=== PATIENT | male | born 1930 | race Caucasian/White ===

== ENCOUNTER 2016-07-18 14:43 | Inpatient (IN) | payer MEDICARE ==
--- NOTE | 2016-07-18 16:33 | ED.PDOC ---
History of Present Illness - General Chief Complaint: Skin/Abrasion/Tear Stated Complaint: swollen right big toe Time Seen by Provider: 07/18/16 16:31 Source: patient, RN notes reviewed, Vital Signs reviewed, family - Exam Limitations: no limitations Additional Information: Stated had 3rd toe amputation of right foot 4 weeks ago then stub rigght big toe one week ago and was noted that it had been getting red and more swelled up and tip of toe getting black - History of Present Illness Timing/Duration: other - one week Severity: moderate Improving Factors: nothing Worsening Factors: nothing Associated Symptoms: other - none Allergies/Adverse Reactions: Allergies Sulfa Antibiotics Allergy (Unknown, Verified 05/05/16 12:18) Codeine Allergy (Verified 05/05/16 12:18) Penicillin G Procaine Allergy (Verified 05/05/16 12:18) Home Medications: Ambulatory Orders Aspirin [Baby Aspirin] 81 mg PO QD 01/05/14 Carvedilol [Coreg] 3.125 mg PO BID 01/05/14 Digoxin 0.125 mg PO DAILY 01/05/14 Furosemide [Lasix] 40 mg PO DAILY 01/05/14 Glipizide [Glucotrol Xl] 2.5 mg PO DAILY 08/31/15 Esomeprazole Magnesium [Nexium] 40 mg PO BEDTIME 09/05/15 Simvastatin [Zocor] 20 mg PO BEDTIME 09/05/15 Insulin Glargine [Toujeo Solostar] 30 unit SC DAILY 05/05/16 Escitalopram [Lexapro] 10 mg PO DAILY 05/07/16 Polyethylene Glycol 3350 [Miralax] 17 gm PO DAILY PRN 05/07/16 Bifidobacterium Infantis [Align] 4 mg PO BID #30 cap 05/14/16 Chlorhexidine Gluc 4% 15Ml [Hibiclens 15ml Unit Dose] 60 ml TOP DAILY #3 ud Sulfa/Trimeth 800/160 (Ds) Tab [Bactrim DS] 1 ea PO BID #20 tab 05/14/16 traMADol 37.5MG/APAP 325MG [Ultracet] 1 ea PO .Q4H PRN #30 tab 05/14/16 Review of Systems - Review of Systems Constitutional: States: no symptoms reported EENTM: States: no symptoms reported Respiratory: States: no symptoms reported Cardiology: States: no symptoms reported Gastrointestinal/Abdominal: States: no symptoms reported Genitourinary: States: no symptoms reported Musculoskeletal: States: see HPI Skin: States: see HPI Endocrine: States: no symptoms reported Hematologic/Lymphatic: States: no symptoms reported Past Medical History (General) - Patient Medical History Hx Seizures: No 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 Hx Dementia: Yes Hx Asthma: No Hx of COPD: Yes Hx Cardiac Disorders: Yes - CHF Hx Congestive Heart Failure: Yes Hx Pacemaker: Yes - defibrillator Hx Hypertension: Yes Hx Thyroid Disease: No Hx Diabetes: Yes Hx Gastroesophageal Reflux: No Hx Renal Disease: No Hx Cancer: Yes - colon Hx of HIV: No Hx Hepatitis C: No Hx MRSA: No Surgical History: coronary bypass surgery, pacemaker, other - colon resection - Vaccination History Hx Tetanus, Diphtheria Vaccination: No Hx Influenza Vaccination: No Hx Pneumococcal Vaccination: No Immunizations Up to Date: No - Social History Hx Tobacco Use: No Hx Chewing Tobacco Use: Yes Hx Alcohol Use: No Hx Substance Use: No Hx Substance Use Treatment: No Hx Depression: No Hx Physical Abuse: No Hx Emotional Abuse: No Hx Suspected Abuse: No - Female History Patient : No Family Medical History - Family History Father Family History: Unknown Living Status: Unknown Hx Family Asthma: No Progress - Progress Progress: 07/18/16 17:41 07/18/16 16:56 Foot,Right 2 Views [RAD] Stat Toes,Right [RAD] Stat 07/18/16 17:02 Foot,Right 3 Views [RAD] Stat 07/18/16 17:12 COMPLETE METABOLIC PROFILE Stat LACTIC ACID Stat BLOOD CULTURE Stat Laboratory Results WBC 7.5 K/mm3 (4.8-10.8) 07/18/16 17:12 RBC 5.08 M/mm3 (4.70-6.10) 07/18/16 17:12 Hgb 15.4 gm/dL (14.0-18.0) 07/18/16 17:12 Hct 47.0 % (42.0-52.0) 07/18/16 17:12 MCV 92.5 fl (80.0-94.0) 07/18/16 17:12 MCH 30.3 pg (27.0-31.0) 07/18/16 17:12 MCHC 32.8 g/dL (33.0-37.0) L 07/18/16 17:12 RDW 15.6 % (11.5-14.5) H 07/18/16 17:12 Plt Count 167 K/mm3 (130-400) 07/18/16 17:12 MPV 9.9 fl (7.40-10.4) 07/18/16 17:12 Absolute Neuts (auto) 5.70 K/uL (1.8-6.8) 07/18/16 17:12 Absolute Lymphs (auto) 1.10 K/uL (1.0-3.4) 07/18/16 17:12 Absolute Monos (auto) 0.50 K/uL (0.2-0.8) 07/18/16 17:12 Absolute Eos (auto) 0.10 K/uL (0.0-0.4) 07/18/16 17:12 Absolute Basos (auto) 0.10 K/uL (0.0-0.1) 07/18/16 17:12 Neutrophils % 75.8 % (42.0-78.0) 07/18/16 17:12 Lymphocytes % 14.9 % (20.0-50.0) L 07/18/16 17:12 Monocytes % 6.9 % (2.0-9.0) 07/18/16 17:12 Eosinophils % 1.5 % (1.0-5.0) 07/18/16 17:12 Basophils % 0.9 % (0.0-2.0) 07/18/16 17:12 Departure - Departure Disposition: Discharge to Home or Self Care Departure Forms: ED Discharge - Pt. Copy, Patient Portal Self Enrollment Home Medications: Ambulatory Orders Aspirin [Baby Aspirin] 81 mg PO QD 01/05/14 Carvedilol [Coreg] 3.125 mg PO BID 01/05/14 Digoxin 0.125 mg PO DAILY 01/05/14 Furosemide [Lasix] 40 mg PO DAILY 01/05/14 Glipizide [Glucotrol Xl] 2.5 mg PO DAILY 08/31/15 Esomeprazole Magnesium [Nexium] 40 mg PO BEDTIME 09/05/15 Simvastatin [Zocor] 20 mg PO BEDTIME 09/05/15 Insulin Glargine [Toujeo Solostar] 30 unit SC DAILY 05/05/16 Escitalopram [Lexapro] 10 mg PO DAILY 05/07/16 Polyethylene Glycol 3350 [Miralax] 17 gm PO DAILY PRN 05/07/16 Bifidobacterium Infantis [Align] 4 mg PO BID #30 cap 05/14/16 Chlorhexidine Gluc 4% 15Ml [Hibiclens 15ml Unit Dose] 60 ml TOP DAILY #3 ud Sulfa/Trimeth 800/160 (Ds) Tab [Bactrim DS] 1 ea PO BID #20 tab 05/14/16 traMADol 37.5MG/APAP 325MG [Ultracet] 1 ea PO .Q4H PRN #30 tab 05/14/16
--- NOTE | 2016-07-18 17:47 | RAD ---
EXAM DESCRIPTION: XR FOOT 3 OR MORE VIEWS CLINICAL HISTORY: infection amputated 2nd digit, pain and swelling to the area COMPARISON: May 05, 2016. FINDINGS: AP,lateral and oblique views of the right foot were submitted. Patient is status post amputation of the 2nd toe at the level of the proximal diaphysis of the proximal phalanx. Decreased bone mineralization compatible with osteopenia. Deformity of the distal 5th metatarsal bone is unchanged compared with the prior exam and suggest prior fracture. There is evidence of prior open reduction and internal fixation with metallic hardware at the level of the medial malleolus and distal fibula. There is atherosclerosis. There is no discrete acute fracture or dislocation. There is no radiopaque foreign body material. IMPRESSION: No acute fracture or dislocation. Electronically signed by: Casimiro Orellana 07/18/2016 17:45
[2016-07-18] MEDS ORDERED: VANCOMYCIN HCL INJ 1,000 MG, VANCOMYCIN HCL INJ 250 MG in SODIUM CHLORIDE 0.9% 250ML 25... IVPB ONE (18:59)
[2016-07-18] MEDS ORDERED: GLUCAGON INJ 1 MG VIAL SUBCU PRN (19:06)
[2016-07-18] MEDS ORDERED: DEXTROSE 50% 25 GM/50 ML SYG IV PRN (19:06)
[2016-07-18] MEDS ORDERED: VANCOMYCIN HCL INJ 1,000 MG VIAL IVPB ONE (19:41)
[2016-07-18] MEDS ORDERED: SODIUM CHLORIDE 0.9% 250ML 250 ML ONE (19:42)
[2016-07-18] MEDS: KCL 20MEQ/0.45% NS 1,000 ML IVS PRN (20:08)
--- NOTE | 2016-07-18 20:14 | HP ---
SUPERVISING PHYSICIAN: Sherman Suarez MD CHIEF COMPLAINT: Infected right great toe. HISTORY OF PRESENT ILLNESS: Mr. Suarez is an 85 year-old male patient of Dr. Suarez's. He has a history of diabetes with a recent amputation of the second toe on the right foot secondary to cellulitis and gangrene. The toe was amputated on 05/13/[address] Hernandez, general surgeon. He was treated with antibiotics in the hospital as well and was discharged on 05/14/16 and had a close followup with both Dr. Suarez and Dr. Hernandez. He was doing well and was having home health care who noticed that in the last 4 to 5 days the patient has started having some swelling in his right great toe with some blackening of the tip, actually he apparently stumped his toe. On date of admission he was seen by a home health nurse who notified Dr. Suarez of the change in the toe regarding cellulitis and infection. Dr. Suarez recommended the patient have clinical evaluation in the Emergency Department. The patient presented to the Emergency Department on date of admission for evaluation of his great toe. X- ray was completed and per radiology interpretation showed no fracture or dislocation. There was no mention of any underlying gaseous processes or infection. However, given the patient's previous history with infection and gangrene of the second toe, recent surgery and uncontrolled diabetes, the patient will be admitted for antibiotic therapy with concerns for underlying osteomyelitis. His laboratory studies also indicated that his glucose was greater than 500, his blood sugar in the Emergency Department was greater than 500 with a slightly elevated lactic acid. Blood cultures were completed as well as cultures of the toe prior to initiation of antibiotics. He was admitted to the medical/surgical floor for continuation of antibiotic therapy and further evaluation, in stable condition. PAST MEDICAL HISTORY: 1. Tobacco abuse, currently using smokeless tobacco. 2. Depression. 3. Congestive heart failure of unknown etiology. 4. Chronic obstructive pulmonary disease. 5. Chronic renal insufficiency, stage 2. 6. Type 2 diabetes mellitus. 7. Hyperlipidemia. 8. Coronary artery disease. 9. Hypertension. 10. Colon cancer. 11. Gastroesophageal reflux disease. 12. Recent history of infection and gangrene resulting in amputation of right second toe in April 2016. PAST SURGICAL HISTORY: 1. Recent amputation of right second toe, right foot, secondary to infectious process in April. 2. Coronary artery bypass graft. 3. Bilateral cataract removal. 4. Right ankle fracture with repair. 5. Pacemaker and defibrillator implantation. CURRENT MEDICATIONS: Please refer to the EMR and updated verified medications. ALLERGIES: PENICILLIN, CODEINE, SULFATE FAMILY HISTORY: Positive for cancer, diabetes and hypertension. SOCIAL HISTORY: He uses smokeless tobacco, he quit smoking many years ago. He denies any alcohol or recent drug use. He is , retired and lives with his at home. REVIEW OF SYSTEMS: GENERAL Denies any fevers, fatigue, weight charges. HEENT: Denies any sinus symptoms, eye pain, ear pain, sore throat. RESPIRATORY: Denies any wheezing, cough or shortness of breath. CARDIAC: Denies chest pain, palpitations, tachycardia. GASTROINTESTINAL: Denies nausea, vomiting, diarrhea or constipation. EXTREMITIES: As noted per history of present illness with right infected great toe. NEUROLOGICAL: Denies headaches, dizziness or seizures. Does have a history of dementia which has been worsening over the last several months according to his . INTEGUMENT: Demes lesions or rashes other than that noted in history of present illness. GENITOURINARY: Denies hematuria or nocturia. PHYSICAL EXAMINATION: VITAL SIGNS: Temperature 98.0, pulse 93, blood pressure 155/81, respirations 18, 02 saturation 90% on room air. Admission weight 81.8 kg. GENERAL: The patient is in no acute distress. He is very communicative, appears to be alert and oriented. HEENT: Tympanic membranes are clear bilaterally. Oropharynx is pink with mucous membranes being dry. There are no notable lesions. NECK: No jugular venous distention. CHEST: Lungs are clear to auscultation bilaterally without rhonchi, wheezing or rales. CARDIOVASCULAR: Regular rate and rhythm without appreciable murmurs, rubs, or gallops. ABDOMEN: Soft, non-tender, positive bowel sounds. EXTREMITIES: No cyanosis, clubbing, or edema. Noted on the right great toe is erythema with a blackened area on the tip with the underlying nail bed showing poor capillary refill with some drainage noted and sent for culture. There is some swelling noted to go the dorsum of the foot with some mild erythema extending proximally with the affected great toe amputation showing healing well without any obvious infection. There is a noted area of eschar on the lateral aspect of the foot. No other injuries are noted. Pulses are weak bilaterally. NEUROLOGIC: Alert and oriented x3. Facial features are symmetric. Extraocular movements are within normal limits. There is no nystagmus. There are no neuromotor or sensory deficits noted. LABORATORY: White count normal at 7.5, hemoglobin 15.4, hematocrit 47.0, platelet count 167,000, differential shows to be within normal limits. Chemistries: Mildly low sodium of 131, potassium 4.7. BUN 24, creatinine 1.39 , glucose 561 on admission, serum osmolality 292, lactic acid elevated at 2.7, AST elevated at 56, ALT normal at 49. Alkaline phosphatase elevated at 215. Digoxin level 2.3. Serum ketones negative. MICROBIOLOGY: Right great toe cultures pending. Blood cultures are pending. RADIOLOGY: X-ray of the right foot 3 views per radiology interpretation shows no acute fracture or dislocation. Please refer to final report for full details. ASSESSMENT: 1. Cellulitis of the right great toe with concerns of possible underlying osteomyelitis pending further evaluation with MRI, currently unavailable at this point with notable cellulitis and some drainage having recently had a second toe amputation with patient having poorly controlled diabetes. 2. Elevated alkaline phosphatase with a baseline of 140 to 180 likely secondary to demineralization and recent amputation of the second toe. 3. Renal insufficiency with a baseline creatinine of 1.7, likely some prerenal azotemia from dehydration and elevated glucose. 4. Chronic tobacco abuse with smokeless tobacco. 5. Chronic obstructive pulmonary disease, stable. 6. Type 2 diabetes mellitus, uncontrolled secondary to underlying infection. 7. Gastroesophageal reflux disease. 8. Hyperlipidemia. 9. Coronary artery disease. 10. History of congestive heart failure, unknown etiology. 11. Elevated digoxin likely secondary to mild dehydration state. PLAN: The patient will be admitted to the hospital and started on antibiotic therapy to cover for possible osteomyelitis and consideration for possible Pseudomonas and anaerobic growth. Therefore, the patient will be started on vancomycin tonight with a loading dose of 1250 to be followed up with pharmacy protocol tomorrow. Will also start him on Flagyl to cover for any anaerobic growth or any anaerobes plus Cefepime for consideration of possible Pseudomonas infection given the nature of the diabetic foot and current ulceration and infection. The patient will need further evaluation to rule out osteomyelitis with MRI which will be unavailable this weekend, therefore, will treat accordingly with antibiotics, await culture results and plan to do MRI on Thursday once available to further rule out any osteomyelitis. Will plan to consult with Dr. Hernandez as Dr. Hernandez has been following his previous amputation and has seen his great toe within he last week, to help with further management and possible need for any surgical intervention. Will provide pain control with [place] as needed. Will give him some IV fluids to include half normal saline with 20 of potassium for 1 liter at 200 cc per hour. After that, will be changed to 80 per hour to help with IV rehydration with consideration for possible underlying congestive heart failure which is stable at this point. Anticipate length of stay to be 2 to 3 days pending further evaluation. Until the, we will continue to follow patient closely and treat appropriately. Once patient is discharged, patient will need close followup with his primary care physician, Dr. Suarez. Given the digoxin level with consideration for possible elevation secondary to dehydration pending study for EKG and close monitoring on telemetry will be completed. Will plan to hold the digoxin and repeat a level in the morning. Will also plan to put him on DVT prophylaxis as per protocol. Will do wound care as per Dr. Hernandez's guidance after Dr. Hernandez has a chance to see the patient in consultation. #[id number] [facility]
[2016-07-18] MEDS ORDERED: ACETAMINOPHEN 325 MG TAB PO PRN (20:39)
[2016-07-18] MEDS ORDERED: SODIUM CHLORIDE 0.9% (FLUSH) 10 ML SYG IV PRN (20:39)
[2016-07-18] MEDS ORDERED: HYDROcodone 5MG/APAP 325MG 1 EA TAB PO PRN (20:39)
[2016-07-18] MEDS ORDERED: IV SET AND CAP CHANGE INJ INJ SCH (21:00)
[2016-07-18] MEDS ORDERED: metroNIDAZOLE IV PREMIX 500MG 100 ML IVPB ONE (21:10)
[2016-07-18] MEDS: metroNIDAZOLE IV PREMIX 500MG 500 MG in PREMIX BAG 1 BAG IVPB SCH (21:32)
[2016-07-18] MEDS: INSULIN LISPRO 100 UNITS/ML PEN SUBCU SCH (21:55)
[2016-07-18] MEDS ORDERED: SODIUM CHL 0.9% 50ML MIN-BAG+ 50 ML IVPB ONE (23:08)
[2016-07-18] MEDS ORDERED: CEFEPIME 2 GM VIAL ONE (23:09)
[2016-07-18] MEDS: CEFEPIME 2 GM in SODIUM CHL 0.9% 50ML MIN-BAG+ 50 ML IVPB SCH (23:15)
--- NOTE | 2016-07-19 00:34 | PCM.CORE ---
Physician DVT/VTE - Nurse DVT Assessment & Total Each Risk Factor Represents 3 Points: Age over 75 years, Medical PT with Hx of [place], CHF, Severe infection/sepsis Each Risk Factor is 1 Point: Varicose Veins/Edema Legs, Obesity (BMI >25) DVT Assessment Score: 8 - 3-4 High Risk Treatments: Early Ambulation *, Sequential Compression Device Pharmacological: Enoxaparin 40 mg SQ Daily
[2016-07-19] MEDS: KCL 20MEQ/0.45% NS 1,000 ML IVS PRN ×2 (03:46→17:40)
[2016-07-19] MEDS ORDERED: metroNIDAZOLE IV PREMIX 500MG 100 ML IVPB ONE ×3 (05:19→19:37)
[2016-07-19] MEDS: metroNIDAZOLE IV PREMIX 500MG 500 MG in PREMIX BAG 1 BAG IVPB SCH ×3 (05:45→22:30)
[2016-07-19] MEDS ORDERED: SODIUM CHL 0.9% 50ML MIN-BAG+ 50 ML IVPB ONE ×2 (07:24→19:37)
[2016-07-19] MEDS ORDERED: CEFEPIME 2 GM VIAL ONE ×2 (07:25→19:38)
[2016-07-19] MEDS: INSULIN LISPRO 100 UNITS/ML PEN SUBCU SCH ×4 (07:36→21:25)
[2016-07-19] MEDS: ENOXAPARIN SODIUM 40 MG/0.4 ML SYG SUBCU SCH (09:23)
[2016-07-19] MEDS: BIFIDOBACTERIUM INFANTIS 4 MG CAP PO SCH (09:23)
[2016-07-19] MEDS ORDERED: VANCOMYCIN PER PHARMACY INJ SCH (10:00)
[2016-07-19] MEDS: CEFEPIME 2 GM in SODIUM CHL 0.9% 50ML MIN-BAG+ 50 ML IVPB SCH ×2 (10:31→23:30)
[2016-07-19] MEDS ORDERED: ASPIRIN (CHEWABLE) 81 MG TAB PO SCH (14:00)
[2016-07-19] MEDS: CARVEDILOL 3.125 MG TAB PO SCH ×2 (14:23→20:38)
[2016-07-19] MEDS: INSULIN GLARGINE 40 UNIT SC SCH (14:51)
--- NOTE | 2016-07-19 18:19 | PN ---
DATE: 07/19/16 SUPERVISING PHYSICIAN: Sherman Suarez M.D. SUBJECTIVE: The patient is doing well. He has had no nausea or vomiting and he remains afebrile. Says he has minimal pain in the right great toe. Cultures are still pending. OBJECTIVE: VITAL SIGNS: T max 98.2, pulse 56, blood pressure 143/73, respirations 16, O2 sat showing 91 to 92% on room air at rest. I's and O's show a positive balance of 937 with 1585 in, 650 out. Weight 74.8 kg. CHEST: Remains clear to auscultation bilaterally. HEART: Regular rate and rhythm. ABDOMEN: Soft, non-tender. Positive bowel sounds. EXTREMITIES: No clubbing, cyanosis or edema. Right great toe remains swollen with erythema and eschar on the distal end. LABORATORY: White count remains normal at 8.0, hemoglobin 15.1, hematocrit 45.4 , platelet count 152,000. Differential remains within normal limits. Electrolytes show to be within normal limits with 4.4 potassium, BUN 19, creatinine is improving to 1.37, glucose is 110 to 302. Alkaline phosphatase remains elevated at 170 although improved from admission of 215. Urine showed 500 glucose and trace of blood on the dipstick with microscopic showing to be within normal limits. MRSA surveillance cultures are pending. Wound culture of the right great toe is pending, as far as 24 hours shows no growth. Blood cultures remain negative at 24 hours. ASSESSMENT: 1. Cellulitis of the right great toe with concerns for possible underlying osteomyelitis awaiting further evaluation with MRI with culture results pending likely secondary to poor vascularization of lower extremities as noted on previous ultrasounds. 2. Elevated alkaline phosphatase with baseline 140 to 180 showing improved likely secondary to previous amputation of the second toe on the right foot. 3. Renal insufficiency with baseline of 1.7 showing improvement with prerenal azotemia from dehydration returning to baseline after IV fluids. 4. Chronic tobacco abuse currently using smokeless tobacco. 5. Chronic obstructive pulmonary disease, stable. 6. Type 2 diabetes, uncontrolled likely secondary to underlying infection showing improvement after further adjustment of his insulin and sliding scale, and IV fluids to correct the underlying dehydration. 7. Gastroesophageal reflux disease. 8. Hyperlipidemia. 9. Coronary artery disease. 10. History of congestive heart failure, unknown etiology without any evidence of current exacerbation. 11. Elevated digoxin level likely secondary to his dehydrated state with current p.o. regimen being held with repeat of laboratory studies in the morning prior to resumption of daily dosing. PLAN: The patient will be continued on antibiotics parenterally to include Cefepime, Flagyl and vancomycin per Pharmacy protocol. Culture results are pending. Most certainly after these are available, we can further target antibiotic therapy as well as anticipation of getting an MRI study of the foot to further rule out any possible osteomyelitis. Anticipate at least another 48 to 72 hours of therapy in regards to parenteral antibiotics and awaiting MRI studies. Dr. Hernandez is consulting and will await further management per Dr. Hernandez' s input. Until then, will continue to monitor the patient closely and treat appropriately. [id number] [facility]
[2016-07-19] MEDS ORDERED: VANCOMYCIN HCL INJ 500 MG VIAL ONE (19:37)
[2016-07-19] MEDS ORDERED: SODIUM CHLORIDE 0.9% 250ML 250 ML ONE (19:37)
[2016-07-19] MEDS ORDERED: SIMVASTATIN 20 MG TAB ONE (19:37)
[2016-07-19] MEDS ORDERED: VANCOMYCIN HCL INJ 1,000 MG VIAL IVPB ONE (19:38)
[2016-07-19] MEDS ORDERED: ALUM & MAG HYDROX-SIMETHICONE 30 ML UD PO PRN (20:35)
[2016-07-19] MEDS: VANCOMYCIN HCL INJ 1,000 MG, VANCOMYCIN HCL INJ 500 MG in SODIUM CHLORIDE 0.9% 250ML 25... IVPB SCH (20:36)
[2016-07-19] MEDS: SIMVASTATIN 20 MG TAB PO SCH (20:38)
[2016-07-20] MEDS ORDERED: metroNIDAZOLE IV PREMIX 500MG 100 ML IVPB ONE ×3 (05:55→21:07)
[2016-07-20] MEDS: metroNIDAZOLE IV PREMIX 500MG 500 MG in PREMIX BAG 1 BAG IVPB SCH ×3 (06:01→21:32)
[2016-07-20] MEDS: PANTOPRAZOLE SODIUM TAB 40 MG PO SCH (06:15)
[2016-07-20] MEDS ORDERED: SODIUM CHL 0.9% 50ML MIN-BAG+ 50 ML IVPB ONE ×2 (07:16→21:06)
[2016-07-20] MEDS ORDERED: glipiZIDE EXTENDED REL (XL) 2.5 MG TAB PO ONE (07:16)
[2016-07-20] MEDS ORDERED: ASPIRIN (CHEWABLE) 81 MG TAB ONE (07:16)
[2016-07-20] MEDS ORDERED: CEFEPIME 2 GM VIAL ONE ×2 (07:17→21:07)
[2016-07-20] MEDS: INSULIN LISPRO 100 UNITS/ML PEN SUBCU SCH ×4 (07:19→21:00)
[2016-07-20] MEDS: BIFIDOBACTERIUM INFANTIS 4 MG CAP PO SCH (08:34)
[2016-07-20] MEDS: glipiZIDE EXTENDED REL (XL) 2.5 MG TAB PO SCH (08:34)
[2016-07-20] MEDS: CARVEDILOL 3.125 MG TAB PO SCH ×2 (08:34→21:29)
[2016-07-20] MEDS: ASPIRIN (CHEWABLE) 81 MG TAB PO SCH (08:35)
[2016-07-20] MEDS: INSULIN GLARGINE 40 UNIT SC SCH (08:35)
[2016-07-20] MEDS: KCL 20MEQ/0.45% NS 1,000 ML IVS PRN (08:40)
[2016-07-20] MEDS: ENOXAPARIN SODIUM 40 MG/0.4 ML SYG SUBCU SCH (09:45)
[2016-07-20] MEDS: CEFEPIME 2 GM in SODIUM CHL 0.9% 50ML MIN-BAG+ 50 ML IVPB SCH ×2 (10:30→22:42)
--- NOTE | 2016-07-20 18:18 | PN ---
DATE: 07/20/16 SUBJECTIVE: The patient is sitting up in the bed eating. He is generally feeling fairly good at this time. He is able to put weight on his foot when he walks to the bathroom with assistance. His is present at all times in order to remind him to stay in the bed. He is quite confused at times but is able to feed himself and otherwise care for himself to a point. OBJECTIVE: Afebrile, pulse 70, blood pressure 123/70, pulse oximetry 98% on room air. Weight is stable at 74.8 kilos. GENERAL: The patient is awake and fairly alert though not entirely able to communicate clearly. The is present and assists greatly in past history answering. The patient is able to eat quite well. LUGS: Have some diminished breath sounds. HEART: Tones somewhat distant. ABDOMEN: Soft. The right big toe is fairly pink with some slight paleness to it secondary to some significant arteriovascular insufficiency to the lower extremity. He has scars of having venous harvesting for his bypass grafting on the right lower extremity. There is a fungal infection under the nail with some slight loosening of the nail. Minimal capillary blanching is noted upon pressure. He continues on the Metronidazole and vancomycin with Cefepime antibiotics. LABORATORY: Culture of the wound is preliminarily showing wound contaminant and no drainage is evident. MRSA surveillance culture is negative. Blood cultures are negative. ASSESSMENT: 1. Cellulitis of the great toe right foot with concerns of possible osteomyelitis within probably specifically aggravated by arteriovascular insufficiency. 2. Elevated alkaline phosphatase. 3. Chronic renal insufficiency with some slight improvement with fluid hydration. 4. Chronic tobacco abuse currently chewing tobacco. 5. Chronic obstructive pulmonary disease, stable. 6. Diabetes mellitus type 2 poorly controlled with the use of insulin to assist in sliding scale to augment treatment. 7. Gastroesophageal reflux disease. 8. History of hyperlipidemia. 9. History of coronary artery disease. 10. History of chronic congestive heart failure of undetermined etiology currently stable. 11. Elevated digoxin level secondary to his dehydrated state with adjustments of dosings accordingly. PLAN: Dr. Hernandez will be in to see the toe in the morning to help verify any progress with these several days of vigorous antibiotic parenteral administration. Consider home with continued followup. The is very helpful in his ongoing care and is necessary for that care. Consider an MRI as an outpatient after discharge with results to Dr. Hernandez and to Dr. Suarez for continued observation and management. Reevaluate in the morning. #[id number] [facility]
[2016-07-20] MEDS ORDERED: PRAMIPEXOLE 0.25 MG TAB PO ONE (21:04)
[2016-07-20] MEDS: SIMVASTATIN 20 MG TAB PO SCH (21:29)
[2016-07-20 23:18] VITALS: TEMP 98.6
[2016-07-21] MEDS: KCL 20MEQ/0.45% NS 1,000 ML IVS PRN (02:14)
[2016-07-21] MEDS ORDERED: metroNIDAZOLE IV PREMIX 500MG 0 ML IVPB ONE (05:20)
[2016-07-21] MEDS: metroNIDAZOLE IV PREMIX 500MG 500 MG in PREMIX BAG 1 BAG IVPB SCH (06:14)
[2016-07-21] MEDS: PANTOPRAZOLE SODIUM TAB 40 MG PO SCH (06:43)
[2016-07-21] MEDS ORDERED: VANCOMYCIN HCL INJ 500 MG VIAL ONE (08:39)
[2016-07-21] MEDS ORDERED: SODIUM CHLORIDE 0.9% 250ML 250 ML ONE (08:40)
[2016-07-21] MEDS ORDERED: VANCOMYCIN HCL INJ 1,000 MG VIAL IVPB ONE (08:40)
[2016-07-21] MEDS: INSULIN LISPRO 100 UNITS/ML PEN SUBCU SCH ×2 (09:08→12:00)
[2016-07-21] MEDS: glipiZIDE EXTENDED REL (XL) 2.5 MG TAB PO SCH (09:09)
[2016-07-21] MEDS: BIFIDOBACTERIUM INFANTIS 4 MG CAP PO SCH (09:09)
[2016-07-21] MEDS: ASPIRIN (CHEWABLE) 81 MG TAB PO SCH (09:09)
[2016-07-21] MEDS: CARVEDILOL 3.125 MG TAB PO SCH (09:09)
[2016-07-21] MEDS: INSULIN GLARGINE 40 UNIT SC SCH (09:11)
[2016-07-21] MEDS: VANCOMYCIN HCL INJ 1,000 MG, VANCOMYCIN HCL INJ 500 MG in SODIUM CHLORIDE 0.9% 250ML 25... IVPB SCH (09:12)
[2016-07-21] MEDS ORDERED: SODIUM CHL 0.9% 50ML MIN-BAG+ 50 ML IVPB ONE (09:42)
[2016-07-21] MEDS ORDERED: metroNIDAZOLE IV PREMIX 500MG 100 ML IVPB ONE (09:42)
[2016-07-21] MEDS ORDERED: CEFEPIME 2 GM VIAL ONE (09:43)
[2016-07-21] MEDS: ENOXAPARIN SODIUM 40 MG/0.4 ML SYG SUBCU SCH (10:00)
[2016-07-21 10:40] VITALS: BP 122/68; O2SAT 100
[2016-07-21] MEDS: CEFEPIME 2 GM in SODIUM CHL 0.9% 50ML MIN-BAG+ 50 ML IVPB SCH (11:14)
--- NOTE | 2016-07-21 14:31 | CONS ---
DATE OF CONSULTATION: 07/21/16 REFERRING PHYSICIAN: Rigo Hyde MD HISTORY OF PRESENT ILLNESS: I have been asked to see this 85-year-old male who is well known to me for drainage from his right great toe. He is status post amputation of the second toe on the right foot in June. It has been healing well, but he developed drainage from the point of the toe. There was no history of discrete injury, although there is a possibility that he stubbed his toe. The cultures at this point are growing only skin contaminants. He is afebrile. I have been asked to add further recommendations to home care and antibiotics. PAST MEDICAL HISTORY: 1. Tobacco abuse. 2. Depression. 3. Congestive heart failure. 4. Chronic obstructive pulmonary disease. 5. Chronic renal insufficiency. 6. Type 2 diabetes. 7. Hyperlipidemia. 8. Coronary artery disease. 9. Hypertension. 10. History of colon cancer. 11. Gastroesophageal reflux. 12. Dementia of uncertain etiology. PAST SURGICAL HISTORY: 1. Recent pacemaker/defibrillator implantation. 2. Coronary artery bypass grafting. 3. Bilateral cataract removal. ALLERGIES: PENICILLIN, CODEINE, SULFATE. FAMILY HISTORY: Positive for cancer, diabetes, hypertension. SOCIAL HISTORY: He is . He denies alcohol use. He is retired and lives at home with his . He uses smokeless tobacco. He quit smoking many years ago. REVIEW OF SYSTEMS: There has been no pain, no fever or chills. No shortness of breath or chest pain. REVIEW OF SYSTEMS: Noncontributory except as in the history of present illness. PHYSICAL EXAMINATION: GENERAL: The patient is awake, alert, cooperative, in no acute distress. BACK: There is an area of excoriation with minimal erythema, probably from a recent fall. EXTREMITIES: The right great toe is dry. It is somewhat cyanotic appearing. There is minimal amount of blanching with recovery of capillary refill on the right foot. No pulses palpable. LABORATORY: White count 7.5, hemoglobin 14.4, 78% neutrophils. Potassium yesterday was 4.4 with creatinine 1.19. Blood sugars are within the 80 to 200 range since his hospitalization. Culture of the foot as noted is moderate growth of probably skin contaminant. MRSA nasal culture is negative. IMPRESSION: 1. Vascular insufficiency, right foot with open wound of the right toe and other areas of the foot. No signs of acute cellulitis. No obvious drainage currently. Cultures are negative for pathogens at this point. RECOMMENDATION: Recommendation is to send him home likely on something like doxycycline. Continue local care with cleaning and thoroughly drying the foot and dressing with a dry bandage daily, then likely a followup MRI by Dr. Suarez and then consideration based on the results of that. He will likely come to amputation of either toes or even the foot. We will see the patient as recommended by Dr. Suarez, primary care physician. #[id number] [facility]
--- NOTE | 2016-07-21 15:36 | DS ---
DISCHARGE DIAGNOSIS: 1. Cellulitis of the great toe, right foot, with concerns of possible underlying osteomyelitis, especially aggravated and worsened by peripheral arteriovascular insufficiency state. 2. Chronic renal insufficiency with slight improvement with fluid supplementation. 3. Chronic tobacco abuse, currently chewing tobacco. 4. Chronic obstructive pulmonary disease, stable. 5. Diabetes mellitus, type 2, poorly controlled with the use of insulin to augment ongoing treatment. 6. Gastroesophageal reflux disease. 7. History of hyperlipidemia. 8. History of coronary artery disease. 9. History of chronic congestive heart failure of undetermined etiology, currently stable. 10. Elevated digoxin level with adjustment of dosings to continue as needed. HISTORY OF PRESENT ILLNESS: This 85-year-old, white male was admitted to the hospital because of worsening appearance and condition of the right big toe. He has had a recent amputation of the right second toe by Dr. Hernandez secondary to cellulitis and dry gangrene. It was amputated on 05/13/16 and he tolerated it well. He has been on antibiotic treatment since and is followed by Dr. Hernandez in surgical clinic and Dr. Suarez in family practice clinic. He has had increasing swelling and blackening of the tip of his big toe on the right and apparently there was a degree of hitting it against something contributing to it and some bleeding into the tissues. The patient was admitted from the Emergency Room for ongoing treatment on a vigorous basis awaiting culture results from the toe. No significant drainage was evident. X-ray of the toe failed to reveal radiographic findings of osteomyelitis, but he will eventually require an MRI to more fully evaluate this. Unable to do an MRI in the hospital because of the holidays and the MRI not being available. LABORATORY: White count remained normal at 7,500 with 79% neutrophils, hemoglobin 14.4. Fasting blood sugar on the morning of discharge was 84 and it was up to 560 when they first came in and sliding scale was supplemented. Lactic acid was elevated at 2.7. BUN 24 and was down to 22 at discharge with a creatinine of 1.19. Potassium 4.4, calcium 8.3 on discharge. Albumin 3.0. Urinalysis showed some hematuria and glycosuria. Dig was slightly elevated at 2.3 and on repeat was 1.5 with adjustment while vancomycin trough was 12.2. Serum ketones were negative on admission. Cultures of blood and nose on MRSA surveillance showed no growth while the toe culture revealed skin contaminant. RADIOLOGY: Foot x-ray failed to reveal any significant abnormalities other than degenerative changes. HOSPITAL COURSE: The patient was fairly alert, communicative and had a good appetite towards the end of his hospital stay. He was improved to the point that he was very much wanting and willing to continue with outpatient management with Dr. Suarez's clinica and Dr. Hernandez's surgical clinic. The patient was seen earlier today by Dr. Hernandez who agrees with ongoing outpatient therapy as prescribed. PLAN: Close followup is suggested with Dr. Suarez tomorrow in the clinic. Dr. Suarez can order an MRI of the right big toe area looking for osteomyelitis at that time. We will continue with local care with diluted Betadine cleansing of the right big toe at home to continue. Dr. Hernandez can see the patient at surgical clinic when Dr. Suarez directs. Good nutrition is important. Keep the right foot elevated to the point of level with the heart as hospital. To his home medications will be added doxycycline 100 mg b.i.d. for the next few days under the clinic's direction. The toe may eventually require surgical intervention, but at this point his condition is fairly stable. Close followup and management of diabetes is important in tissue maintenance. Return if not improving. #[id number] [facility]
== END 2016-07-21 14:04 | disposition home or self-care (01) | DRG 603 ==
LOC: ER 14:43 → MS 20:12
PROVIDERS: ADMIT Nurse Practitioner Family; ATTEND Emergency Medicine
DX: L03.031 Cellulitis of right toe (principal); I13.0 Hypertensive heart and chronic kidney disease with heart failure and stage 1 through stage 4 chronic kidney disease, or unspecified chronic kidney disease; I69.351 Hemiplegia and hemiparesis following cerebral infarction affecting right dominant side; I70.201 Unspecified atherosclerosis of native arteries of extremities, right leg; N18.2 Chronic kidney disease, stage 2 (mild); I50.9 Heart failure, unspecified; E86.0 Dehydration; F17.220 Nicotine dependence, chewing tobacco, uncomplicated; J44.9 Chronic obstructive pulmonary disease, unspecified; E11.65 Type 2 diabetes mellitus with hyperglycemia; E11.51 Type 2 diabetes mellitus with diabetic peripheral angiopathy without gangrene; K21.9 Gastro-esophageal reflux disease without esophagitis; E78.5 Hyperlipidemia, unspecified; I25.10 Atherosclerotic heart disease of native coronary artery without angina pectoris; F32.9 Major depressive disorder, single episode, unspecified; Z89.421 Acquired absence of other right toe(s); Z85.038 Personal history of other malignant neoplasm of large intestine; Z95.810 Presence of automatic (implantable) cardiac defibrillator; Z88.0 Allergy status to penicillin; Z88.5 Allergy status to narcotic agent; Z88.2 Allergy status to sulfonamides; Z79.4 Long term (current) use of insulin; Z79.899 Other long term (current) drug therapy; Z95.1 Presence of aortocoronary bypass graft

== ENCOUNTER → 2016-07-31 | Outpatient (CLI) | payer MEDICARE | LOC: GMAM 12:55 | PROVIDERS: ATTEND Family Medicine | DX: L03.031 Cellulitis of right toe (principal) ==

== ENCOUNTER → 2016-08-01 | Outpatient (CLI) | payer MEDICARE ==
--- NOTE | 2016-08-01 15:16 | CT ---
EXAM DESCRIPTION: CT LOWER EXTREMITY WITHOUT IV CONTRAST CLINICAL HISTORY: 85 y/o M, CELLULITIS OF TOE L03.031 COMPARISON: Right foot series obtained on July 18, 2016 TECHNIQUE: CT of the right foot was performed without IV contrast. FINDINGS: Again seen is surgical absence of the majority of the right 2nd toe. There is a tiny amount of gas in the soft tissues of the distal aspect of the great toe, but no discrete abscess or other mass is seen. There is a punctate foreign body or calcification in the subcutaneous soft tissues along the plantar aspect of the 2nd MTP joint. Subcutaneous soft tissue inflammation is noted along the plantar aspect of the left foot, greatest medially along the plantar aspect of the 1st MTP joint. There is some ill-defined lucency in the distal phalanx of the great toe with a slightly displaced fracture at the same location, possibly pathologic. There is cortical lucency with a questionable lytic lesion involving remaining portions of the proximal phalanx of the 2nd toe. No additional cortical defect or bony erosion is identified. There is a probable old healed right 5th metatarsal fracture. IMPRESSION: Probable osteomyelitis involving the distal phalanx of the great toe and remaining portions of the 2nd toe including pathologic fracture of the distal phalanx of the great toe. MRI could be performed for confirmation. Soft tissue inflammation involving the right foot distally, worse medially. Findings are consistent with cellulitis. No definite abscess at this time. Punctate calcification versus foreign body in the subcutaneous soft tissues along the plantar aspect of the 2nd MTP joint. Electronically signed by: Mayur Peace DO 08/01/2016 15:14
== END ==
LOC: MRI 12:46
PROVIDERS: ATTEND Family Medicine
DX: L03.031 Cellulitis of right toe (principal)

== ENCOUNTER 2016-08-19 08:11 | Day surgery (SDC) | payer MEDICARE ==
[~2016-08-19 08:11] MED LIST: LACTATED RINGERS 1,000 ML ONE; levoFLOXacin 500MG IV 100 ML IVPB ONE; levoFLOXacin 500MG IV 500 MG/100 ML BAG IVPB ONE
[2016-08-19] MEDS ORDERED: fentaNYL CITRATE INJ 50 MCG/ML AMP ONE (08:17)
[2016-08-19] MEDS ORDERED: BUPIVACAINE 0.5% 30 ML VIAL INJ ONE (08:26)
--- NOTE | 2016-08-19 11:43 | OP ---
DATE OF PROCEDURE: 08/19/16 PREOPERATIVE DIAGNOSIS: 1. Osteomyelitis, right great toe. 2. Diabetes mellitus. 3. Peripheral vascular occlusive disease. POSTOPERATIVE DIAGNOSIS: 1. Osteomyelitis, right great toe. 2. Diabetes mellitus. 3. Peripheral vascular occlusive disease. PROCEDURE: 1. Amputation of right great toe. SURGEON: Alhaji Hernandez MD. POLICE DETECTIVE: None. ANESTHESIA: Ankle block, IV sedation and local infiltration of anesthesia with 0.5% Marcaine. FINDINGS: The transected bone in the first phalange appeared to be healthy. Blood flow to the flaps appeared to be healthy. Pathology is pending. PROCEDURE: After adequate blocking anesthesia and IV sedation was performed, the patient was prepped and draped in the usual sterile manner. Surgical time- out was taken, then a fishmouth incision was made, first with a marking pen and then with infiltration of anesthesia. The skin was incised with 15 blade in toto. Dissection was carried down to the bone. Periosteal elevator was used to isolate the bone. The tendons were cut by grasping with a hemostat and then dividing them proximally. When this was done, the bone was divided with the distribution operation supervisor and then a rongeur was used to flatten the bone that was left. The wound was then irrigated copiously with saline. Hemostasis was obtained with electrocautery. The wound was closed in two layers with subcutaneous tissue reapproximated with interrupted 4-0 Vicryl sutures and the skin edges approximated with 4-0 Nylon vertical mattress sutures. Sterile dressing with Adaptic and gauze was used and held in place with an Ashwin wrap. The patient tolerated the procedure well. Estimated blood loss was approximately 25 to 50 mL. All sponge, needle and instrument counts were correct. #[id number] [facility]
[2016-08-19] MEDS ORDERED: PROPOFOL 200 MG/20 ML VIAL IV ONE (12:00)
[2016-08-19] MEDS ORDERED: LIDOCAINE 1% 10 ML VIAL INJ ONE (12:00)
[2016-08-19 13:01] VITALS: BP 153/90; TEMP 97.4; O2SAT 98
== END 2016-08-19 11:45 | disposition home health service (06) ==
LOC: AMB 08:11
PROVIDERS: ATTEND Surgery
DX: M86.8X7 Other osteomyelitis, ankle and foot (principal); I25.10 Atherosclerotic heart disease of native coronary artery without angina pectoris; I50.9 Heart failure, unspecified; J44.9 Chronic obstructive pulmonary disease, unspecified; E78.5 Hyperlipidemia, unspecified; Z95.1 Presence of aortocoronary bypass graft; E11.9 Type 2 diabetes mellitus without complications; Z95.0 Presence of cardiac pacemaker; Z88.0 Allergy status to penicillin; Z88.8 Allergy status to other drugs, medicaments and biological substances; Z79.82 Long term (current) use of aspirin; Z79.899 Other long term (current) drug therapy; I82.90 Acute embolism and thrombosis of unspecified vein
CPT/HCPCS: 01480; 28810; 36416; 82948; 88305; 88311; J1956; J3490; J7120

== ENCOUNTER 2016-09-23 10:39 | Inpatient (IN) | payer MEDICARE ==
--- NOTE | 2016-09-23 11:18 | ED.PDOC ---
History of Present Illness - General Chief Complaint: Neuro Symptoms/Deficits Stated Complaint: seizure Time Seen by Provider: 09/23/16 11:12 Source: family, EMS Exam Limitations: no limitations - History of Present Illness Initial Comments: Layo 86 y/o male with history of seizure starting 4 mos ago was about to go for his evaluation of seizure to his doctors office when he had another seizure episode lasting for about 3 minutes he was held by the while having the seizure no history of fall.No previous medical evaluation of his seizure was done recently.He has cad/on aicd,dementia and gastric tumor s/p surgery. Timing/Duration: 1-3 hours Severity: moderate Improving Factors: nothing Worsening Factors: nothing Associated Symptoms: denies symptoms Allergies/Adverse Reactions: Allergies Sulfa Antibiotics Allergy (Unknown, Verified 09/23/16 11:06) Codeine Allergy (Verified 09/23/16 11:06) Penicillin G Procaine Allergy (Verified 09/23/16 11:06) Home Medications: Ambulatory Orders Aspirin [Baby Aspirin] 81 mg PO QD 01/05/14 Carvedilol [Coreg] 3.125 mg PO BID 01/05/14 Digoxin 0.125 mg PO DAILY 01/05/14 Furosemide [Lasix] 40 mg PO DAILY 01/05/14 Glipizide [Glucotrol Xl] 2.5 mg PO DAILY 08/31/15 Insulin Glargine [Toujeo Solostar] 40 unit SC DAILY 05/05/16 Atorvastatin Calcium [Lipitor] 20 mg PO BEDTIME 08/15/16 Temazepam [Restoril] 15 mg PO BEDTIME PRN 08/15/16 Review of Systems - Review of Systems Constitutional: States: no symptoms reported EENTM: States: no symptoms reported Respiratory: States: no symptoms reported Cardiology: States: no symptoms reported Gastrointestinal/Abdominal: States: no symptoms reported Genitourinary: States: no symptoms reported Musculoskeletal: States: no symptoms reported Skin: States: no symptoms reported Neurological: States: see HPI, seizure, other - hallucination,no violent tendencies,no suicidal attempts stated hid his gun Past Medical History (General) - Patient Medical History Hx Seizures: No Hx Stroke: No Hx Dementia: Yes Hx Asthma: No Hx of COPD: No Hx Cardiac Disorders: Yes - CHF Hx Congestive Heart Failure: Yes Hx Pacemaker: Yes - Defib Hx Hypertension: No Hx Thyroid Disease: No Hx Diabetes: Yes - BS 157 POST-OP Hx Gastroesophageal Reflux: No Hx Renal Disease: No Hx Cancer: Yes - colon Hx of HIV: No Hx Hepatitis C: No Hx MRSA: No MRSA Source:: Wound - Vaccination History Hx Tetanus, Diphtheria Vaccination: No Hx Influenza Vaccination: No Hx Pneumococcal Vaccination: No - Social History Hx Tobacco Use: No Hx Chewing Tobacco Use: Yes Hx Alcohol Use: No Hx Substance Use: No Hx Substance Use Treatment: No Hx Depression: No Hx Physical Abuse: No Hx Emotional Abuse: No Hx Suspected Abuse: No - Female History Patient is a Female of Child Bearing Age (10 -59 yrs old): No Patient : No Family Medical History - Family History Father Family History: Unknown Living Status: Hx Family Asthma: No Hx Family Congestive Heart Failure: Yes Hx Family Hypertension: - unknown Hx Family Stroke: No Hx Cardiac Disease: Yes Hx Family Diabetes: Yes Hx Family Cancer: Yes - gastric-mom;uterine-sister Physical Exam - Physical Exam General Appearance: Alert, Comfortable, No apparent distress Eye Exam: bilateral normal ENT Exam: normal ENT inspection, hearing grossly normal, TMs normal, pharynx normal Neck: non-tender, full range of motion, supple, normal inspection, trachea midline Respiratory: chest non-tender, lungs clear, normal breath sounds, no respiratory distress, no accessory muscle use, respiratory distress Cardiovascular/Chest: normal peripheral pulses, regular rate, rhythm, no edema, no gallop, no JVD, no murmur Peripheral Pulses: radial,right: 2+, radial,left: 2+ Gastrointestinal/Abdominal: normal bowel sounds, non tender, soft, no organomegaly, no pulsatile mass Back Exam: normal inspection, no CVA tenderness, no vertebral tenderness Extremities Exam: non-tender, normal range of motion Mental Status: alert, 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 Exam: normal hearing, normal speech, PERRL Motor/Sensory: no motor deficit, no sensory deficit, no pronator drift Skin Exam: normal color, warm/dry Progress - Results/Orders Results/Orders: 09/23/16 11:24 URINE DRUG SCREEN, 7 ASSAY Stat URINALYSIS Stat Laboratory Results WBC 7.9 K/mm3 (4.8-10.8) 09/23/16 11:32 RBC 5.25 M/mm3 (4.70-6.10) 09/23/16 11:32 Hgb 16.2 gm/dL (14.0-18.0) 09/23/16 11:32 Hct 49.2 % (42.0-52.0) 09/23/16 11:32 MCV 93.7 fl (80.0-94.0) 09/23/16 11:32 MCH 30.8 pg (27.0-31.0) 09/23/16 11:32 MCHC 32.9 g/dL (33.0-37.0) L 09/23/16 11:32 RDW 15.1 % (11.5-14.5) H 09/23/16 11:32 Plt Count 207 K/mm3 (130-400) 09/23/16 11:32 MPV 9.5 fl (7.40-10.4) 09/23/16 11:32 Absolute Neuts (auto) 6.30 K/uL (1.8-6.8) 09/23/16 11:32 Absolute Lymphs (auto) 1.00 K/uL (1.0-3.4) 09/23/16 11:32 Absolute Monos (auto) 0.50 K/uL (0.2-0.8) 09/23/16 11:32 Absolute Eos (auto) 0.10 K/uL (0.0-0.4) 09/23/16 11:32 Absolute Basos (auto) 0.10 K/uL (0.0-0.1) 09/23/16 11:32 Neutrophils % 79.2 % (42.0-78.0) H 09/23/16 11:32 Lymphocytes % 13.1 % (20.0-50.0) L 09/23/16 11:32 Monocytes % 5.9 % (2.0-9.0) 09/23/16 11:32 Eosinophils % 1.0 % (1.0-5.0) 09/23/16 11:32 Basophils % 0.8 % (0.0-2.0) 09/23/16 11:32 PT 10.7 SECONDS (9.4-12.5) 09/23/16 11:32 INR 0.950 09/23/16 11:32 PTT (SP) 35.7 SECONDS (25.1-36.5) 09/23/16 11:32 Sodium 136 mmol/L (135-145) 09/23/16 11:32 Potassium 4.6 mmol/L (3.6-5.0) 09/23/16 11:32 Chloride 95 mmol/L (101-111) L 09/23/16 11:32 Carbon Dioxide 26 mmol/L (21-31) 09/23/16 11:32 Anion Gap 19.6 (12-18) H 09/23/16 11:32 BUN 25 mg/dL (7-18) H 09/23/16 11:32 Creatinine 1.72 mg/dL (0.6-1.3) H 09/23/16 11:32 BUN/Creatinine Ratio 14.5 (10-20) 09/23/16 11:32 Random Glucose 266 mg/dL (70-105) H 09/23/16 11:32 Serum Osmolality 285.7 mOsm/L (275-295) 09/23/16 11:32 Calcium 9.3 mg/dL (8.4-10.2) 09/23/16 11:32 Magnesium 2.4 mg/dL (1.8-2.5) 09/23/16 11:32 Total Bilirubin 1.0 mg/dL (0.2-1.0) 09/23/16 11:32 AST 70 IU/L (10-42) H 09/23/16 11:32 ALT 56 IU/L (10-60) 09/23/16 11:32 Alkaline Phosphatase 177 IU/L (42-121) H 09/23/16 11:32 Creatine Kinase 31 IU/L (38-174) L 09/23/16 11:32 CK-MB (CK-2) 2.0 ng/mL (0.0-4.4) 09/23/16 11:32 CK-MB (CK-2) % Not Reportable 09/23/16 11:32 Troponin I 0.05 ng/mL (0.01-0.05) 09/23/16 11:32 B-Natriuretic Peptide 498.0 pg/ml (0-100) H* 09/23/16 11:32 Serum Total Protein 8.1 gm/dL (6.4-8.2) 09/23/16 11:32 Albumin 3.5 g/dl (3.2-5.5) 09/23/16 11:32 Globulin 4.6 gm/dL (2.3-3.5) H 09/23/16 11:32 Albumin/Globulin Ratio 0.8 (1.1-1.9) L 09/23/16 11:32 - EKG/XRAY/CT XRAY: chest - no acute changes CT: head without-multiple remote infarcts - Additional EKG/XRAY/Consults Comments: pacemaker rhythm Stroke Information - Onset of Symptoms Stroke Onset of Symptoms Date: 09/23/16 - no cva Departure - Departure Clinical Impression: Seizures Time of Disposition: 14:17 - D/W Dr. Hyde /Dr. Suarez for admit Disposition: Admit Patient Departure Forms: ED Discharge - Pt. Copy, Patient Portal Self Enrollment Referrals: Sherman Suarez MD [Primary Care Provider] - 1-2 Weeks Home Medications: Ambulatory Orders Aspirin [Baby Aspirin] 81 mg PO QD 01/05/14 Carvedilol [Coreg] 3.125 mg PO BID 01/05/14 Digoxin 0.125 mg PO DAILY 01/05/14 Furosemide [Lasix] 40 mg PO DAILY 01/05/14 Glipizide [Glucotrol Xl] 2.5 mg PO DAILY 08/31/15 Insulin Glargine [Toujeo Solostar] 40 unit SC DAILY 05/05/16 Atorvastatin Calcium [Lipitor] 20 mg PO BEDTIME 08/15/16 Temazepam [Restoril] 15 mg PO BEDTIME PRN 08/15/16 Decision To Admit - Decistion To Admit Decision to Admit Reason: Admit from ER Decision to Admit Date: 09/23/16
--- NOTE | 2016-09-23 11:53 | CT ---
Study: CT of the Head. Indication: seizure Technique: Axial CT images of the head were acquired without intravenous contrast. Comparison: None. Findings: No CT evidence of acute ischemia, acute hemorrhage, mass, mass effect, midline shift, or extra-axial fluid collection. Scattered remote infarcts redemonstrated right frontal lobe and posterior left parietal lobe. Additional new remote infarct right temporal lobe. Tiny left remote cerebellar infarct. Ventricles are normal in configuration without hydrocephalus. Patchy hypoattenuation of the periventricular and subcortical white matter noted. This is nonspecific but most consistent with chronic microvascular ischemic change. Global parenchymal volume loss and intracranial atherosclerosis noted as well. Paranasal sinuses are adequately aerated. Mastoid air cells are adequately aerated. Osseous structures and soft tissues are unremarkable. Impression: 1. No CT evidence of acute intracranial abnormality. If persistent concern for acute ischemia, correlation with MRI recommended. 2. Multiple remote infarcts as above. 3. Senescent changes. Electronically signed by: Trino Marr MD 09/23/2016 11:53 AM INSULATION INSTALLER
--- NOTE | 2016-09-23 11:56 | RAD ---
Portable chest INDICATION: Cough COMPARISON: May 08, 2016 IMPRESSION: [employer] pacemaker/AICD stable. Lungs are improved with less interstitial edema and vascular congestion. Heart size normal. Mild pleural thickening/fluid left side decreased. Previous CABG. Electronically signed by: Dandre Castillo MD 09/23/2016 11:55 AM SOFTWARE TEST ENGINEER
[2016-09-23] MEDS ORDERED: ALUM & MAG HYDROX-SIMETHICONE 30 ML UD PO ONE (15:07)
[2016-09-23] MEDS ORDERED: SUCRALFATE 1 GM/10 ML 1 GM UD PO ONE (15:07)
--- NOTE | 2016-09-23 15:16 | HP ---
HISTORY OF PRESENT ILLNESS: This 86 year-old white male is admitted to the hospital via the Emergency Room accompanied by his . Apparently for the last 6 weeks he has been having fairly significant, though short, seizure activity usually in the evening. He starts gazing up and to the right and his usually supports him with his walked against a wall preventing him falling. The seizures were to be discussed earlier today with Dr. Suarez, the patient's family practitioner. They were getting ready to go to an appointment at his office. As he was walking outside of the house he suddenly looking up and started to fall backwards and the supported him until they were able to get him sitting on his rolling walker until ambulance crew was able to arrive. He apparently had seizure activities between 2 and 3 minutes and was postictal for approximately 10 to 12 minutes until he arrived at the Emergency Room. He has had a mild headache occasionally. No previous history of significant seizures in the past. No history of CVAs, though on CT scan of the head multiple scars from old ischemic events are noted. He has not had an MRI of the head because of significant metal around his body with pacemaker, etc. 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 He is admitted to the hospital for initiation of initial evaluation including carotid ultrasound and physical therapy evaluation. PAST MEDICAL HISTORY: 1. Congestive heart failure of undetermined etiology. 2. Chronic obstructive pulmonary disease in a chronic tobacco user. 3. Chronic renal insufficiency stage II. 4. Diabetes mellitus on insulin therapy. 5. Hyperlipidemia. 6. Chronic depression. 7. Chronic tobacco abuse currently with smokeless tobacco. 8. History of coronary artery disease. 9. History of hypertension. 10. History of colon cancer. 11. History of gastroesophageal reflux disease. 12. 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 PAST SURGICAL HISTORY: 1. In April of this past year, amputation of the followup great toe is noted. 2. Coronary artery bypass grafting. 3. Bilateral cataract surgeries. 4. Right ankle fracture with repair. 5. Pacemaker and defibrillator implantation. CURRENT MEDICATIONS: Please refer to nurses' notes for an up to date list of verified medicines taken at home. ALLERGIES: PENICILLIN, CODEINE AND SULFATE. FAMILY HISTORY: Positive for cancer, diabetes and hypertension. SOCIAL HISTORY: The patient has been chewing snuff. He quit smoking a number of years ago. 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 REVIEW OF SYSTEMS: Weight loss of about 10 pounds in the last 3 months. No fever or chills. HEENT: No significant worsening hearing or vision loss. LUNGS : Occasional shortness of breath upon exertion, occasional cough. CARDIOVASCULAR: No significant chest pains or palpitations. ABDOMEN: No nausea or vomiting, diarrhea or blood in the stools. GENITOURINARY: No significant dysuria. NEUROLOGIC: Generally quite weak. Onset of seizure activity is noted about 6 weeks primarily in the evening time, especially while walking. Significant confusion has been a problem also here in the recent past according to the family. PHYSICAL EXAMINATION: VITAL SIGNS: Afebrile, pulse 74, blood pressure 117/66, respirations 20, pulse oximetry 98% on room air. Weight 73.9 kilos. GENERAL: He is cooperative and fairly alert, though noticeably not entirely oriented. HEENT: Unremarkable. NECK: Supple. No carotid bruits but good pulse is evident. No increased jugular venous distention. CHEST: Lungs have diminished breath sounds. CARDIOVASCULAR: Heart tones are fairly regular without any significant gallops. ABDOMEN: Generally soft, though slightly distended. EXTREMITIES: Fairly well formed with fair muscle tone. Trace of pedal edema at the ankles. NEUROLOGIC: No focal neurological deficits. The patient is quite weak but is able to move all extremities. He is otherwise fairly alert, cooperative and communicative. No seizures noted in the Emergency Room or in the hospital to this point. LABORATORY: White count 7,900 with 79% neutrophils, hemoglobin 16.2. INR 0.95. Chemistry shows sodium 136, potassium 4.6, CO2 26, anion gap 19.6, BUN 25 , creatinine 1.72, glucose 266. AST elevated at 70. CK low at 31, troponin is 0.05. Beta natriuretic peptide 498. Albumin 3.5. Urinalysis shows some pyuria , hematuria and bacteriuria with culture pending. Urine drug screen is negative. X-RAY: Chest x-ray shows no acute findings with evidence of underlying chronic obstructive pulmonary disease evident. Head CT was positive for multiple infarcts of a remote time. ASSESSMENT: 1. Significant seizure disorder, possible temporal lobe or partial seizures presentation possibly related to epileptogenic foci within previous stroke scars noted on CT scan. 2. Evidence radiographically of recurring fairly significant ischemic strokes in the brain on CT scan with resultant scars possibly contributing to the underlying seizure disorder. 3. Diabetes mellitus on insulin therapy. 4. History of coronary artery disease. 5. Mild dementia. 6. 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 7. Weight loss. 8. Chronic tobacco use. PLAN: Will continue supportive care. Await Physical Therapy evaluation to evaluate for safety of ambulation. The patient's condition has deteriorated to the point where it is difficult for the to adequately and safely care for the patient. His significant seizures will be approached with a suppressive medication treatment involving Juan and will be observed closely. To discuss with Neurology department in the morning to get their further advice. #[id number] [facility]
[2016-09-23] MEDS ORDERED: levETIRAcetam 250 MG TAB PO ONE (16:16)
[2016-09-23] MEDS ORDERED: DEXTROSE 50% 25 GM/50 ML SYG IV PRN (18:10)
[2016-09-23] MEDS ORDERED: LEVALBUTEROL NEBS 1.25 MG/3 ML VIAL INH PRN (18:10)
[2016-09-23] MEDS ORDERED: MAGNESIUM HYDROXIDE 30 ML UD PO PRN (18:10)
[2016-09-23] MEDS ORDERED: SODIUM CHLORIDE 0.9% (FLUSH) 10 ML SYG IV PRN (18:10)
[2016-09-23] MEDS ORDERED: ACETAMINOPHEN 325 MG TAB PO PRN (18:10)
[2016-09-23] MEDS ORDERED: GLUCAGON INJ 1 MG VIAL SUBCU PRN (18:10)
[2016-09-23] MEDS ORDERED: ONDANSETRON INJ 4 MG/2 ML VIAL IV PRN (18:10)
[2016-09-23] MEDS ORDERED: IV SET AND CAP CHANGE INJ INJ SCH (18:30)
[2016-09-23] MEDS ORDERED: NICOTINE PATCH 14 MG TD SCH (18:30)
[2016-09-23] MEDS: SODIUM CHLORIDE 0.9% 1000ML 1,000 ML IVS PRN (18:37)
[2016-09-23] MEDS: ASPIRIN (CHEWABLE) 81 MG TAB PO SCH (18:37)
[2016-09-23] MEDS: NICOTINE PATCH 14 MG TD SCH (19:46)
[2016-09-23] MEDS: levETIRAcetam 250 MG TAB PO SCH (20:34)
[2016-09-23] MEDS: CARVEDILOL 3.125 MG TAB PO SCH (20:34)
[2016-09-23] MEDS: AMITRIPTYLINE HCL 25 MG TAB PO SCH (20:34)
[2016-09-23] MEDS: INSULIN LISPRO 100 UNITS/ML PEN SUBCU SCH (21:02)
[2016-09-23] MEDS: IPRATROPIUM/ALBUTEROL 3 ML VIAL INH SCH ×2 (21:15→21:17)
[2016-09-24] MEDS: OMEPRAZOLE CAP 20 MG CAP PO SCH (06:12)
[2016-09-24] MEDS ORDERED: CARVEDILOL 3.125 MG TAB ONE (07:22)
[2016-09-24] MEDS ORDERED: levETIRAcetam 250 MG TAB ONE (07:22)
[2016-09-24] MEDS ORDERED: glipiZIDE EXTENDED REL (XL) 2.5 MG TAB PO ONE (07:22)
[2016-09-24] MEDS ORDERED: ASPIRIN (CHEWABLE) 81 MG TAB ONE (07:22)
[2016-09-24] MEDS ORDERED: ESCITALOPRAM 10 MG TAB ONE (07:23)
[2016-09-24] MEDS ORDERED: DIGOXIN 0.25 MG TAB ONE (07:23)
[2016-09-24] MEDS ORDERED: SODIUM CHLORIDE 0.9% 10 ML VIAL IV PRN (07:27)
[2016-09-24] MEDS: INSULIN LISPRO 100 UNITS/ML PEN SUBCU SCH ×4 (07:37→21:02)
[2016-09-24] MEDS: IPRATROPIUM/ALBUTEROL 3 ML VIAL INH SCH ×3 (08:39→20:10)
[2016-09-24] MEDS ORDERED: INSULIN GLARGINE 40 UNIT SC SCH (09:00)
[2016-09-24] MEDS: glipiZIDE EXTENDED REL (XL) 2.5 MG TAB PO SCH (09:36)
[2016-09-24] MEDS: CARVEDILOL 3.125 MG TAB PO SCH ×2 (09:36→20:38)
[2016-09-24] MEDS: ESCITALOPRAM 10 MG TAB PO SCH (09:36)
[2016-09-24] MEDS: levETIRAcetam 250 MG TAB PO SCH ×2 (09:37→20:38)
[2016-09-24] MEDS: ASPIRIN (CHEWABLE) 81 MG TAB PO SCH (09:37)
[2016-09-24] MEDS ORDERED: NON-FORMULARY MEDICATION 1 EA MIS (Insulin Glargine [Toujeo Solostar] 30 UNIT) SC SCH (09:52)
--- NOTE | 2016-09-24 10:37 | US ---
EXAM DESCRIPTION: Carotid Duplex CLINICAL HISTORY: 86 years Male, seizure after CVA's COMPARISON: None. TECHNIQUE: Grayscale, color Doppler and spectral Doppler imaging of the carotid arteries was performed. Stenosis was calculated indirectly based on peak systolic velocity. FINDINGS: The right common carotid artery demonstrates a peak systolic velocity of 81 cm/s, left is 77. The peak systolic velocity of the right internal carotid artery is 48, the left is 29. Atherosclerotic plaque noted within the proximal right common carotid artery. Atherosclerotic plaque noted within the left carotid bulb and proximal internal carotid artery. Antegrade flow noted within bilateral vertebral arteries. IMPRESSION: Today's exam demonstrated no abnormal velocity or ratio. There is minimal atherosclerotic disease bilaterally. This is compatible with a lateral carotid stenosis measuring 1-49%. Electronically signed by: Karan Soto MD 09/24/2016 10:36 AM PIPELINER
[2016-09-24] MEDS: SODIUM CHLORIDE 0.9% 1000ML 1,000 ML IVS PRN (10:50)
[2016-09-24] MEDS: DIGOXIN 0.25 MG TAB PO SCH (11:55)
[2016-09-24] MEDS ORDERED: SODIUM CHL 0.9% 50ML MIN-BAG+ 50 ML IVPB ONE ×2 (16:57→20:04)
[2016-09-24] MEDS ORDERED: cefTRIAXone SODIUM 1 GM VIAL ONE ×2 (16:57→20:04)
[2016-09-24] MEDS: cefTRIAXone SODIUM 1 GM in SODIUM CHL 0.9% 50ML MIN-BAG+ 50 ML IVPB SCH (16:57)
--- NOTE | 2016-09-24 17:47 | PN ---
DATE: 09/24/16 SUBJECTIVE: The patient is especially sleepy though arousable during the day. He ate his meal very hungrily earlier today, even a little more vigorously than usual. Because of this, he has noted a slight increase in some of his sugar levels up to 220 in the afternoon. He is otherwise with no respiratory distress. He is otherwise able to look around and respond. His is present. He was seen by Physical Therapy who are having a difficult time in being able to get him out of the bed and to safely ambulate, and will require some additional time and rehab before the patient can safely be expected to function even with support. OBJECTIVE: Afebrile, blood pressure 124/69, pulse oximetry 96% on room air. Weight is up a little bit to 75.5 kilos. He has had a net intake greater than output. LUNGS: Generally clear. HEART: Tones regular. ABDOMEN: Soft. The patient is quite drowsy maybe related to the new antiseizure medicine, Keppra, that he is now on but will need to be observed. LABORATORY STUDIES: White count 7,700, hemoglobin 15.6. Chemistry shows sodium 139, potassium 4.0, CO2 is 29, BUN 26, creatinine 1.53, glucose 87. He is normally on 40 units of Toujeo which will be continued. Continue sliding scale as well. Urine culture is positive for gram positive cocci with final identification hopefully by tomorrow. Carotid ultrasound was performed today and failed to reveal any hemodynamically significant stenosis. ASSESSMENT: 1. Significant seizure disorder possible temporal lobe or partial seizures presenting possibly related to an epileptogenic foci within previous stroke scars noted on CT scan. Unable to do an MRI because of pacemaker. 2. Evidence radiographically of recurring fairly significant ischemic strokes in the brain on CT scan. 3. Diabetes mellitus on insulin therapy. 4. History of coronary artery disease. 5. Moderate dementia showing some deterioration. 6. Ischemic peripheral vascular disease with the loss of the right great toe. 7. History of weight loss. 8. Chronic tobacco use. 9. History of pacemaker insertion. PLAN: The patient's condition is discussed with Dr. Landry Tony, neurology service. He feels our best course would be a trial of Keppra at 500 mg b.i.d. which will be continued after having been initiated last evening. He will see the patient next , 10/02/16 at 10:00 AM in the clinic. The patient will continue with special physical therapy continued rehabilitation and evaluation so that suggestions can be made for possible continued rehabilitation before the patient can safely return home. Discussed with who will continue to assist with ongoing care. Evaluate for the possibility of continued rehabilitation at [facility] until safe to return home. #[id number] [facility]
[2016-09-24] MEDS: NICOTINE PATCH 14 MG TD SCH (20:18)
[2016-09-24] MEDS: AMITRIPTYLINE HCL 25 MG TAB PO SCH (20:38)
[2016-09-25] MEDS: SODIUM CHLORIDE 0.9% 1000ML 1,000 ML IVS PRN ×2 (02:46→20:16)
[2016-09-25] MEDS: cefTRIAXone SODIUM 1 GM in SODIUM CHL 0.9% 50ML MIN-BAG+ 50 ML IVPB SCH (05:00)
[2016-09-25] MEDS: OMEPRAZOLE CAP 20 MG CAP PO SCH (06:08)
[2016-09-25] MEDS ORDERED: SODIUM CHL 0.9% 50ML MIN-BAG+ 0 ML IVPB ONE (07:03)
[2016-09-25] MEDS ORDERED: cefTRIAXone SODIUM 1 GM VIAL ONE (07:04)
[2016-09-25] MEDS: INSULIN LISPRO 100 UNITS/ML PEN SUBCU SCH ×4 (07:45→21:23)
[2016-09-25] MEDS: glipiZIDE EXTENDED REL (XL) 2.5 MG TAB PO SCH (07:53)
[2016-09-25] MEDS: ASPIRIN (CHEWABLE) 81 MG TAB PO SCH (09:11)
[2016-09-25] MEDS: CARVEDILOL 3.125 MG TAB PO SCH ×2 (09:11→21:22)
[2016-09-25] MEDS: ESCITALOPRAM 10 MG TAB PO SCH (09:11)
[2016-09-25] MEDS: levETIRAcetam 250 MG TAB PO SCH ×2 (09:12→21:22)
[2016-09-25] MEDS: INSULIN GLARGINE 40 UNIT SC SCH (09:47)
[2016-09-25] MEDS: IPRATROPIUM/ALBUTEROL 3 ML VIAL INH SCH ×3 (10:09→20:25)
[2016-09-25] MEDS: DIGOXIN 0.25 MG TAB PO SCH (12:58)
[2016-09-25] MEDS ORDERED: NITROFURANTOIN MONOHYDRATE MAC 100 MG CAP ONE (13:11)
[2016-09-25] MEDS: NITROFURANTOIN MONOHYDRATE MAC 100 MG CAP PO SCH (17:14)
[2016-09-25] MEDS: NICOTINE PATCH 14 MG TD SCH (20:21)
[2016-09-25] MEDS: AMITRIPTYLINE HCL 25 MG TAB PO SCH (21:23)
--- NOTE | 2016-09-25 21:33 | PN ---
DATE: 09/25/16 SUPERVISING PHYSICIAN: Rigo Hyde M.D. SUBJECTIVE: The patient is lying in bed. He is very pleasantly confused. He has no complaints. He is at this time in no acute respiratory distress. He is able to answer some simple yes/no questions. He has been accepted to [facility] tomorrow. OBJECTIVE: He is afebrile, heart rate 75, blood pressure 127/70, respiratory rate 18, O2 sat 96% on room air. RESPIRATORY: Clear to auscultation bilaterally. CARDIAC: Regular rate and rhythm. ABDOMEN: Soft, nondistended, non-tender. Bowel sounds are positive. LABORATORY: CBC is basically within normal limits. Chemistry shows chloride 100, BUN 26, creatinine 1.53. Urine culture is positive for Enterococcus faecalis. All other labs and films have been reviewed via the EMR. ASSESSMENT: 1. Significant seizure disorder possibly temporal lobe or partial seizures. The patient is presently on Keppra. 2. CT evidence of recurring fairly significant ischemic strokes. 3. Diabetes mellitus on insulin therapy. 4. History of coronary artery disease. 5. Dementia showing some deterioration. 6. Ischemic peripheral vascular disease. 7. History of weight loss. 8. History of chronic tobacco abuse. 9. History of pacemaker insertion. PLAN: We will discharge the patient tomorrow to [facility]. I have discontinue his present antibiotics and changed them to Macrobid 100 mg b.i.d. The Enterococcus faecalis was sensitive to Macrobid on his culture and sensitivity. We will monitor his blood sugars overnight as well as his status and hopefully he can be discharged to [facility] tomorrow. Dr. Hyde is the collaborating physician available for consultation. #[id number] [facility]
[2016-09-26] MEDS: OMEPRAZOLE CAP 20 MG CAP PO SCH (06:26)
[2016-09-26] MEDS: NITROFURANTOIN MONOHYDRATE MAC 100 MG CAP PO SCH (07:53)
[2016-09-26] MEDS: INSULIN LISPRO 100 UNITS/ML PEN SUBCU SCH (07:53)
[2016-09-26] MEDS: glipiZIDE EXTENDED REL (XL) 2.5 MG TAB PO SCH (07:53)
[2016-09-26] MEDS: IPRATROPIUM/ALBUTEROL 3 ML VIAL INH SCH (08:16)
[2016-09-26] MEDS: ASPIRIN (CHEWABLE) 81 MG TAB PO SCH (09:28)
[2016-09-26] MEDS: levETIRAcetam 250 MG TAB PO SCH (09:28)
[2016-09-26] MEDS: CARVEDILOL 3.125 MG TAB PO SCH (09:28)
[2016-09-26] MEDS: ESCITALOPRAM 10 MG TAB PO SCH (09:28)
[2016-09-26] MEDS: INSULIN GLARGINE 40 UNIT SC SCH (09:33)
[2016-09-26] MEDS: DIGOXIN 0.25 MG TAB PO SCH (12:30)
[2016-09-26 15:03] VITALS: BP 132/78; TEMP 97.7; O2SAT 95
--- NOTE | 2016-09-26 15:42 | DS ---
SUPERVISING PHYSICIAN: Rigo Hyde M.D. DISCHARGE DIAGNOSIS: 1. Significant seizure disorder possibly temporal lobe or partial seizures. The patient is presently on Keppra. 2. CT evidence of recurring fairly significant ischemic stroke. 3. Diabetes mellitus on insulin therapy. 4. Urinary tract infection with culture showing Enterococcus faecalis. 5. History of coronary artery disease. 6. Dementia showing some deterioration. 7. Ischemic peripheral vascular disease. 8. History of weight loss. 9. History of chronic tobacco abuse. 10. History of pacemaker insertion. HISTORY OF PRESENT ILLNESS: This is an 86 year-old male patient who was admitted to the hospital via the Emergency Room accompanied by his . For the last 6 weeks he has been having fairly significant though short seizure activity usually in the evening. He starts gazing up and to the right and his usually supports him against the wall to prevent him from falling. The seizures were going to be discussed with his primary care physician, Dr. Suarez , but as they were going to his appointment, he had another seizure. They called EMS and they brought him to the Emergency Room. His seizure activities have lasted between 2 to 3 minutes and was postictal for approximately 10 to 12 minutes until he arrived in the Emergency Room. He had a mild headache. He has no previous history of significant seizure in the past. No history of cerebrovascular accidents. On CT scan of the head, multiple scars from old ischemic events are noted. He has not had an MRI of the head because he has a pacemaker. He has a history of chronic tobacco abuse. He was admitted to the hospital. HOSPITAL COURSE: The patient was admitted to the hospital. He had a carotid artery ultrasound that showed no abnormal velocity or ratio. There is minimal atherosclerotic disease bilaterally. This is compatible with a lateral carotid stenosis measuring 1 to 49%. He was treated with Keppra for his seizure activity. His condition was discussed with Dr. Landry Tony, neurologist. He agreed with the course of Keppra. He has a followup appointment with Dr. Tony on 10/02/16 at 10:00 AM. Physical Therapy was also consulted and they stated that he needed minimum assistance with activities of daily living, minimum assistance with gait. He had impaired balance. He did demonstrate some significant safety concerns for the patient and his , and they recommended that Assisted Facility with rehab services would be appropriate. Margaret Luna, our Cherry Cutter, initiated plans to discharge to [facility]. The patient had no further seizure activity in the hospital. He was also found to have a urinary tract infection with Enterococcus faecalis and initially was placed on Macrobid 2 times daily. He will be discharged to [facility] today. DISCHARGE PLAN: The patient will be discharged in good condition to [facility]. He is to resume a diabetic diet. His activity will be per Physical Therapy. He will need a Physical Therapy consultation. I have discontinued his Glipizide as well as his Toujeo insulin. Toujeo will not be available at the group home. He will be placed on Levemir insulin 30 units at night. He will also be placed on sliding scale insulin Humalog coverage for his a.c. and h.s. blood sugars. His Levemir may need to be adjusted and he will follow with Dr. Suarez on 10/09/16 at 10:30 AM as well as with Dr. Tony next week. He is to resume his previous medications with the exception of his changes as noted plus he will be on Macrobid 100 mg p.o. b.i.d. for 10 days. He is to return to the hospital or call Dr. Suarez's office for any further complications or problems. DISCHARGE MEDICATIONS: 1. Furosemide. 2. Digoxin. 3. Aspirin. 4. Carvedilol. 5. Lipitor. 6. Amitriptyline. 7. Nexium. 8. Lexapro. 9. Levemir insulin. 10. Nicotine patch. 11. Nitrofurantoin. 12. Keppra. 13. Humalog insulin. Dr. Hyde is the collaborating physician available for consultation. #[id number] [facility]
[2016-09-27] MEDS ORDERED: INSULIN DETEMIR 100 UNITS/ML PEN SUBCU SCH (09:00)
== END 2016-09-26 14:05 | DRG 101 ==
LOC: ER 10:39 → OBSVTOIN 15:15 → MS 15:15
PROVIDERS: ADMIT Emergency Medicine; ATTEND Nurse Practitioner Acute Care
DX: G40.909 Epilepsy, unspecified, not intractable, without status epilepticus (principal); N39.0 Urinary tract infection, site not specified; I13.0 Hypertensive heart and chronic kidney disease with heart failure and stage 1 through stage 4 chronic kidney disease, or unspecified chronic kidney disease; B95.2 Enterococcus as the cause of diseases classified elsewhere; I25.10 Atherosclerotic heart disease of native coronary artery without angina pectoris; F03.90 Unspecified dementia, unspecified severity, without behavioral disturbance, psychotic disturbance, mood disturbance, and anxiety; I73.9 Peripheral vascular disease, unspecified; I50.9 Heart failure, unspecified; J44.9 Chronic obstructive pulmonary disease, unspecified; N18.2 Chronic kidney disease, stage 2 (mild); E11.22 Type 2 diabetes mellitus with diabetic chronic kidney disease; E78.5 Hyperlipidemia, unspecified; F32.9 Major depressive disorder, single episode, unspecified; K21.9 Gastro-esophageal reflux disease without esophagitis; Z79.4 Long term (current) use of insulin; Z85.038 Personal history of other malignant neoplasm of large intestine; Z89.411 Acquired absence of right great toe; Z89.421 Acquired absence of other right toe(s); Z95.1 Presence of aortocoronary bypass graft; Z95.810 Presence of automatic (implantable) cardiac defibrillator; Z88.0 Allergy status to penicillin; Z88.5 Allergy status to narcotic agent; Z87.891 Personal history of nicotine dependence; Z86.73 Personal history of transient ischemic attack (TIA), and cerebral infarction without residual deficits; Z66 Do not resuscitate

== ENCOUNTER → 2016-09-29 | Outpatient (CLI) | payer MEDICARE | END | disposition home or self-care (01) | LOC: GT 08:58 | PROVIDERS: ATTEND Family Medicine | DX: I50.9 Heart failure, unspecified (principal) ==

== ENCOUNTER → 2016-10-06 | Outpatient (CLI) | payer MEDICARE | LOC: GT 07:49 | PROVIDERS: ATTEND Family Medicine | DX: E78.5 Hyperlipidemia, unspecified (principal); E11.9 Type 2 diabetes mellitus without complications; I51.9 Heart disease, unspecified; Z79.899 Other long term (current) drug therapy ==

== ENCOUNTER → 2016-10-09 | Outpatient (CLI) | payer MEDICARE | END | disposition home or self-care (01) | LOC: GMAM 14:10 | PROVIDERS: ATTEND Family Medicine | DX: R53.83 Other fatigue (principal); R56.9 Unspecified convulsions ==

== ENCOUNTER → 2016-10-13 | Outpatient (CLI) | payer MEDICARE | END | disposition home or self-care (01) | LOC: GT 08:10 | PROVIDERS: ATTEND Family Medicine | DX: Z79.899 Other long term (current) drug therapy (principal) ==